=== PATIENT | male | born 1945 | race Caucasian/White ===

== ENCOUNTER 2023-01-28 15:08 | Emergency (ER) | payer MEDICARE ==
[~2023-01-28] VITALS: Ht 152.4 cm; Wt 67.6 kg
[~2023-01-28 15:08] MED LIST: ASPIRIN80 MG PO; SIMVASTATIN40 MG PO
[2023-01-28] MEDS ORDERED: LISINOPRIL10 M1 PO (15:17)
[2023-01-28] MEDS ORDERED: ASPIRIN ADULT L81 M2 PO (15:18)
[2023-01-28] MEDS ORDERED: MULTIVITAMIN1 EACH PO (15:18)
[2023-01-28] MEDS ORDERED: B COMPLEX1 EACH PO (15:18)
[2023-01-28 16:14] LABS: BASO # 0.1 10*3/uL (0.0-0.1); BASO % 1.2 % (0.0-1.0); EOS # 0.5 10*3/uL (0.0-0.4); EOS % 7.8 % (1.0-4.0); HEMATOCRIT 39.4 % (42.0-52.0); LYMPH # 2.1 10*3/uL (1.3-4.4); LYMPH % 32.1 % (27.0-41.0); MEAN CELL VOLUME 89.7 fl (80.0-94.0); MEAN CORPUSCULAR HGB 30.8 pg (27.0-31.0); MEAN CORPUSCULAR HGB CONC 34.3 g/dl (33.0-37.0); MEAN PLATELET VOLUME 10.5 fl (9.6-12.3); MONO # 0.6 10*3/uL (0.1-1.0); MONO % 9.3 % (3.0-9.0); NEUT # 3.1 10*3/uL (2.3-7.9); NEUT % 48.8 % (47.0-73.0); PLATELET COUNT AUTOMATED 215 10*3/uL (130-400); RED BLOOD COUNT 4.39 10*6/uL (4.50-5.90); RED CELL DISTRI WIDTH 12.4 % (0-14.5); WHITE BLOOD COUNT 6.4 10*3/uL (4.8-10.8)
[2023-01-28 16:16] LABS: BILIRUBIN Negative (Negative); BLOOD Negative (Negative); CLARITY Clear (Clear); COLOR Yellow (Yellow); GLUCOSE Negative (Negative); KETONE Negative (Negative); LEUKO ESTERASE Negative (Negative); NITRITE Negative (Negative); PH 5.5 (4.5-8.0); SPECIFIC GRAVITY <= 1.005 (1.001-1.030); UROBILINOGEN 0.2 E.U./dl (0.0-1.0)
[2023-01-28 16:23] LABS: EPITHELIAL CELLS 0-2; RBC 0-2 rbc/hpf (0-2); WBC 0-2 wbc/hpf (0-5)
[2023-01-28 16:25] LABS: ACT PARTIAL THROMBO TIME 27.4 SECONDS (20.0-32.1); INTERNATIONAL NORM RATIO 0.9 (2.0-3.5)
[2023-01-28 16:39] LABS: ALKALINE PHOSPHATASE 54 U/L (46-116); BUN 6 mg/dl (9-23); CHLORIDE 104 mmol/L (98-107); LIPASE 94 U/L (12-53); POTASSIUM 4.1 mmol/L (3.4-5.1); SGPT/ALT 15 U/L (10-49); TOTAL PROTEIN 7.3 gm/dL (6.0-8.0)
== END 2023-01-28 17:47 | disposition left against medical advice (07) ==
LOC: ED 15:08
PROVIDERS: Emergency Medicine
DX: R55 Syncope and collapse (principal); H53.8 Other visual disturbances; E78.00 Pure hypercholesterolemia, unspecified; Z91.041 Radiographic dye allergy status; Z90.49 Acquired absence of other specified parts of digestive tract; Z98.890 Other specified postprocedural states

== ENCOUNTER → 2023-02-21 | Outpatient (CLI) | payer MEDICARE ==
[~2023-02-21] MED LIST changes: +ASPIRIN ADULT L81 M2 PO; +B COMPLEX1 EACH PO; +LISINOPRIL10 M1 PO; +MULTIVITAMIN1 EACH PO
== END | disposition home or self-care (01) ==
LOC: US 09:30
PROVIDERS: ATTEND Internal Medicine Nephrology
DX: R10.11 Right upper quadrant pain (principal)

== ENCOUNTER 2024-09-13 15:15 | Emergency (ER) | payer MEDICARE ==
[~2024-09-13] VITALS: Ht 152.4 cm; Wt 56.7 kg
[2024-09-13] MEDS ORDERED: SODIUM CHLORIDE 0.9% 1,000 ML IV ONE (15:30)
[2024-09-13] MEDS ORDERED: Ondansetron Hydrochloride 4 MG/2 ML VIAL IV ONE (15:30)
[2024-09-13 15:41] LABS: BASO # 0.1 10*3/uL (0.0-0.1); BASO % 0.8 % (0.0-1.0); EOS # 0.4 10*3/uL (0.0-0.4); EOS % 5.9 % (1.0-4.0); HEMATOCRIT 44.1 % (42.0-52.0); MEAN CELL VOLUME 92.3 fl (80.0-94.0); MEAN CORPUSCULAR HGB 30.5 pg (27.0-31.0); MEAN CORPUSCULAR HGB CONC 33.1 g/dl (33.0-37.0); MEAN PLATELET VOLUME 11.8 fl (9.6-12.3); MONO # 0.5 10*3/uL (0.1-1.0); MONO % 8.1 % (3.0-9.0); NEUT # 3.3 10*3/uL (2.3-7.9); NEUT % 50.9 % (47.0-73.0); PLATELET COUNT AUTOMATED 164 10*3/uL (130-400); RED BLOOD COUNT 4.78 10*6/uL (4.50-5.90); WHITE BLOOD COUNT 6.4 10*3/uL (4.8-10.8)
[2024-09-13 16:02] LABS: ALKALINE PHOSPHATASE 96 U/L (46-116); BUN 23 mg/dl (9-23); CHLORIDE 99 mmol/L (98-107); LIPASE 42 U/L (12-53); POTASSIUM 2.9 mmol/L (3.4-5.1); SGPT/ALT 13 U/L (5-49); TOTAL PROTEIN 7.4 gm/dL (6.0-8.0)
[2024-09-13] MEDS ORDERED: POTASSIUM CHLORIDE 20 MEQ TAB PO ONE (17:40)
[2024-09-13] MEDS ORDERED: POTASSIUM CHLO20 ME3 PO (18:12)
[2024-09-13] MEDS ORDERED: Ondansetron4 MG PO (18:12)
[2024-09-13] MEDS ORDERED: CIPROFLOXACIN H10 ML OPH (18:12)
== END 2024-09-13 18:38 | disposition home or self-care (01) ==
LOC: ED 15:15
PROVIDERS: Emergency Medicine
DX: R10.11 Right upper quadrant pain (principal); R11.2 Nausea with vomiting, unspecified; R42 Dizziness and giddiness; R59.0 Localized enlarged lymph nodes; Z91.041 Radiographic dye allergy status; Z79.899 Other long term (current) drug therapy; Z79.82 Long term (current) use of aspirin; Z90.49 Acquired absence of other specified parts of digestive tract; Z98.890 Other specified postprocedural states

== ENCOUNTER 2024-10-10 15:33 | Emergency (ER) | payer MEDICARE ==
[~2024-10-10] VITALS: Ht 152.4 cm; Wt 49.0 kg
[~2024-10-10 15:33] MED LIST changes: +CIPROFLOXACIN H10 ML OPH; +Ondansetron4 MG PO; +POTASSIUM CHLO20 ME3 PO
== END 2024-10-10 18:50 | disposition left against medical advice (07) ==
LOC: ED 15:33
DX: R11.2 Nausea with vomiting, unspecified (principal); Z53.21 Procedure and treatment not carried out due to patient leaving prior to being seen by health care provider

== ENCOUNTER → 2024-10-13 | Outpatient (CLI) | payer MEDICARE | END | disposition home or self-care (01) | LOC: RAD 11:34 | PROVIDERS: ATTEND Internal Medicine | DX: R07.81 Pleurodynia (principal) ==